=== PATIENT | female | born 1940 | race Caucasian/White ===

== ENCOUNTER 2017-08-16 09:46 | Emergency (ER) | payer MEDICARE, OTHER ==
[~2017-08-16] VITALS: Ht 162.6 cm; Wt 54.4 kg
[~2017-08-16 09:46] MED LIST: ASPIR 8181 MG PO; LIPITOR40 MG PO; LOPERAMIDE 2 MG2 M1 PO; NORVASC5 MG PO; PLAVIX 75 MG TA75 M1 PO; PRINIVIL20 MG PO
[2017-08-16] MEDS ORDERED: SYNTHROID150 MCG PO (10:02)
[2017-08-16] MEDS ORDERED: HYDROCODONE-AP1 EAC6 PO (12:12)
[2017-08-16 12:42] VITALS: BP 135/71
[2017-08-18] MEDS ORDERED: LEVOTHYROXINE125 MCG PO (12:27)
[2017-08-23] MEDS ORDERED: HYDROCODONE-AP1 EAC6 PO (13:11)
== END 2017-08-16 12:43 | disposition home or self-care (01) ==
LOC: M.ERS 09:46
DX: S52.592A Other fractures of lower end of left radius, initial encounter for closed fracture (principal); I10 Essential (primary) hypertension; E78.00 Pure hypercholesterolemia, unspecified; K52.9 Noninfective gastroenteritis and colitis, unspecified; F17.210 Nicotine dependence, cigarettes, uncomplicated; Z88.1 Allergy status to other antibiotic agents; W18.39XA Other fall on same level, initial encounter; Y93.89 Activity, other specified; Y92.89 Other specified places as the place of occurrence of the external cause; Y99.8 Other external cause status

== ENCOUNTER → 2017-08-23 | Day surgery (SDC) | payer MEDICARE, OTHER ==
[~2017-08-23] MED LIST changes: +HYDROCODONE-AP1 EAC6 PO; +LEVOTHYROXINE125 MCG PO; +SYNTHROID150 MCG PO
[2017-08-23 09:05] LABS: HEMATOCRIT 42.6 % (37.0-47.0); HEMOGLOBIN 14.3 gm/dL (12.0-15.0); MCH 30.9 pg (26.0-34.0); MCHC 33.4 g/dL (28.0-37.0); MCV 92.5 fL (80.0-100.0); MPV 9.1 fl. (7.2-11.1); RBC 4.61 mil/uL (4.20-5.00); RDW-CV 15.2 % (10.5-14.5); WBC 8.1 thou/uL (4.0-11.0)
[2017-08-23 09:12] LABS: CALCIUM 8.9 mg/dL (8.5-10.1); CREATININE 1.7 mg/dL (0.6-1.3)
[2017-08-23 09:17] LABS: ALBUMIN 3.3 g/dL (3.4-5.0); TOTAL BILIRUBIN 0.3 mg/dL (<0.1-1.0); TOTAL PROTEIN 6.8 g/dL (6.4-8.2)
--- NOTE | 2017-08-23 16:25 | EKG ---
[place] [address] ELECTROCARDIOGRAM REPORT Name: DARSHAN KAMARA Room: [facility]#: [id number] Admission: 08/23/17 Attend Phys: Alex Garrison II Discharge: Date of : 36 Report #: [id number] THIS REPORT FOR: //name// [facility] Test Date: 2017-08-23 Test Time: 08:52:52 Pat Name: DARSHAN BALWINDERJEREMÍAS Department: Room: Gender: Transfer Man: BRIGIDO : 1940 Requested By: Alex Garrison Order Number: [id number] Hillary MD: Marquis Singleton Measurements Intervals [place] Rate: 92 P: 85 W[place]: 143 QRS: 86 QRSD: 85 T: 52 QT: 364 QTc: 451 Interpretive Statements Sinus rhythm Possible left atrial enlargement Borderline right axis deviation Compared to ECG 06/11/2016 12:42:52 No significant changes Electronically Signed On 08-23-2017 16:25:31 STUDENT DEVELOPMENT ADVISOR by Marquis Singleton [email or web address] <ELECTRONICALLY SIGNED> By: Marquis Singleton MD, [facility] 08/23/17 1625 1 Marquis Singleton MD, [facility] /EPI
--- NOTE | 2017-09-07 16:43 | OP ---
[address] [address] OPERATIVE REPORT Name: DARSHAN KAMARA Room: [facility]#: [id number] Admission: 08/23/17 Attend Phys: Alex Garrison II Discharge: Date of : 36 Report #: [id number] THIS REPORT FOR: //name// CC: Phoebe Garrison DATE OF SERVICE: 08/23/2017 PREOPERATIVE DIAGNOSIS: Left distal radius fracture greater than 3 parts with comminution and displacement. POSTOPERATIVE DIAGNOSIS: Left distal radius fracture greater than 3 parts with comminution and displacement. PROCEDURE: Open reduction and internal fixation of left distal radius fracture greater than 3 parts. SURGEON: Alex Garrison II, DO [employer] STEAMER: ELENA Toure. ANESTHESIA: General endotracheal. ESTIMATED BLOOD LOSS: Minimal. ANTIBIOTICS: Per operative record. DRAINS: None. COMPLICATIONS: None. CONDITION: The patient stable to recovery room. IMPLANTS: [place] distal radius plate with appropriate locking and nonlocking screws. BRIEF HISTORY: The patient had prior distal radius fracture and was seen in the ER, was seen in the clinic and after this for evaluation and a splint, did have displacement and comminution of the distal radius. Closed treatment versus operative interventions were discussed and the patient assumed all risks and wished to proceed with surgery. OPERATIVE PROCEDURE: The patient was taken to the operative suite and placed supine on the operating table and given appropriate anesthesia. The patient's left upper extremity, a well-padded tourniquet was applied to the upper arm, which was inflated to 250 mmHg for the duration [place] [address] OPERATIVE REPORT Name: DARSHAN KAMARA Room: [facility]#: [id number] Admission: 08/23/17 Attend Phys: Alex Garrison II Discharge: Date of : 36 Report #: [id number] exsanguination. The left arm was then sterilely prepped and draped. Surgery began by a volar incision over the flexor carpi radialis tendon. This was carried down to the subcutaneous tissues. The pronator was then reflected from the radius and the fracture was evaluated. Utilizing C-arm this fracture was reduced in near anatomic fashion as well as utilizing intraoperative hardware and tools in order to reduce this fracture. It was then aligned with the plate and pinned into position to hold the alignment. The screws were then placed through the distal portion as well as up to the proximal to allow for stable fixation of the joint as well as of the fracture site. Multiple fracture fragments were moved into position in ordered to be pinned in this location. Final irrigation was performed. Final images were taken with C-arm in both AP and lateral directions showed excellent reduction and near anatomic fixation without penetration of the joint. The pronator was reflected back over the plate and sewn into position. The subcuticular layer was then closed with 2-0 Vicryl. Skin was closed with a running Monocryl stitch. Dermabond and sterile dressing were applied. A volar splint was then applied as well. The patient was transported to the recovery room in stable condition. Counts were correct throughout the procedure. <ELECTRONICALLY SIGNED> By: Alex Garrison II, DO 09/07/17 1643 [id number] Garrison II, DO /nt
== END | disposition home or self-care (01) ==
LOC: M.SUR 08:31
PROVIDERS: Orthopaedic Surgery
DX: S52.502A Unspecified fracture of the lower end of left radius, initial encounter for closed fracture (principal); X58.XXXA Exposure to other specified factors, initial encounter; Y93.9 Activity, unspecified; Y92.89 Other specified places as the place of occurrence of the external cause; Y99.9 Unspecified external cause status
CPT/HCPCS: 25609; C1713

== ENCOUNTER → 2018-01-26 | Outpatient (CLI) | payer MEDICARE, OTHER | LOC: M.ULTRA 12:43 | DX: I72.1 Aneurysm of artery of upper extremity (principal) ==

== ENCOUNTER → 2018-05-15 | Outpatient (CLI) | payer MEDICARE, OTHER | LOC: M.RAD 14:24 | DX: J44.9 Chronic obstructive pulmonary disease, unspecified (principal); Z87.891 Personal history of nicotine dependence ==

== ENCOUNTER → 2018-07-27 | Outpatient (CLI) | payer MEDICARE, OTHER ==
[2018-07-27 15:10] LABS: ABSOLUTE NEUTROPHILS 4.1 thou/uL (1.6-8.1); HEMATOCRIT 37.7 % (37.0-47.0); HEMOGLOBIN 12.4 gm/dL (12.0-15.0); MCH 30.7 pg (26.0-34.0); MCHC 32.8 g/dL (28.0-37.0); MCV 93.7 fL (80.0-100.0); MPV 9.2 fl. (7.2-11.1); PLATELET COUNT* 138 thou/uL (150-400); POLYS 60.5 %; RBC 4.02 mil/uL (4.20-5.00); RDW-CV 15.2 % (10.5-14.5); WBC 6.7 thou/uL (4.0-11.0)
[2018-07-27 15:11] LABS: ABSOLUTE EOSINOPHILS 0.1 thou/uL (0.0-0.7); ABSOLUTE LYMPHOCYTES 1.9 thou/uL (0.8-5.3); ABSOLUTE MONOCYTES 0.6 thou/uL (0.0-1.2); BASOPHILS 0.7 %; EOSINOPHILS 1.7 %; LYMPHOCYTES 28.4 %; MONOCYTES 8.7 %
[2018-07-27 15:14] LABS: URINE BILIRUBIN NEGATIVE (Negative); URINE BLOOD 2+ (Negative); URINE CLARITY CLEAR; URINE COLOR YELLOW; URINE GLUCOSE-RANDOM NEGATIVE (Negative); URINE KETONES NEGATIVE (Negative); URINE LEUKOCYTES NEGATIVE (Negative); URINE NITRITE NEGATIVE (Negative); URINE PROTEIN 2+ (Negative); URINE SPECIFIC GRAVITY >= 1.030 (1.005-1.030); URINE UROBILINOGEN 0.2 E.U./dl (0.2-1.0)
[2018-07-27 15:20] LABS: ALBUMIN 3.3 g/dL (3.4-5.0); CALCIUM 8.9 mg/dL (8.5-10.1); CREATININE 1.7 mg/dL (0.6-1.3); POTASSIUM 3.9 mmol/L (3.5-5.1); TOTAL BILIRUBIN 0.2 mg/dL (<0.1-1.0); TOTAL PROTEIN 6.8 g/dL (6.4-8.2); URIC ACID* 4.1 mg/dL (2.6-7.2)
[2018-07-27 15:24] LABS: BACTERIA >30 Many /HPF (None Seen); CRYSTALS None Seen /LPF (None Seen); HYALINE CASTS 0-3 Few /LPF (None Seen); MUCUS None Seen strn/LPF (None Seen); SQUAMOUS >10 Many /LPF (0-3); URINE RBC 3-10 Few /HPF (0-2); URINE WBC 6-15 Few /HPF (0-5); YEAST Present (None Seen)
[2018-07-27 16:15] LABS: CALCIUM 9.1 mg/dL (8.5-10.1); CREATININE 1.7 mg/dL (0.6-1.3); PHOSPHORUS* 3.1 mg/dL (2.5-4.9)
[2018-07-27 21:06] LABS: COMPLEMENT-C4 23 mg/dL (14-44); IgA 196 mg/dL (64-422); IgG 695 mg/dL (700-1600); IgM 56 mg/dL (26-217)
[2018-07-28 07:06] LABS: HEPATITIS B SURFACE AG Negative (Negative)
== END ==
LOC: M.LAB 14:10
PROVIDERS: Internal Medicine Nephrology
DX: I12.9 Hypertensive chronic kidney disease with stage 1 through stage 4 chronic kidney disease, or unspecified chronic kidney disease (principal); N18.3 Chronic kidney disease, stage 3 (moderate); Z87.891 Personal history of nicotine dependence

== ENCOUNTER → 2018-07-28 | Outpatient (CLI) | payer MEDICARE, OTHER ==
[2018-07-31 18:06] LABS: URINE PROTEIN (MG/DL) 43.9 mg/dL (Not Estab.)
== END ==
LOC: M.ULTRA 14:36
PROVIDERS: Internal Medicine Nephrology
DX: I12.9 Hypertensive chronic kidney disease with stage 1 through stage 4 chronic kidney disease, or unspecified chronic kidney disease (principal); N18.3 Chronic kidney disease, stage 3 (moderate); N28.1 Cyst of kidney, acquired; F17.210 Nicotine dependence, cigarettes, uncomplicated; E78.00 Pure hypercholesterolemia, unspecified

== ENCOUNTER → 2019-01-17 | Outpatient (CLI) | payer MEDICARE, OTHER ==
[2019-01-17 10:48] LABS: HEMOGLOBIN 11.6 gm/dL (12.0-15.0)
[2019-01-17 10:51] LABS: CALCIUM 9.4 mg/dL (8.5-10.1); CREATININE 1.7 mg/dL (0.6-1.3); POTASSIUM 4.6 mmol/L (3.5-5.1)
[2019-01-17 11:18] LABS: CALCIUM 9.2 mg/dL (8.5-10.1); CREATININE 1.7 mg/dL (0.6-1.3); PHOSPHORUS* 3.6 mg/dL (2.5-4.9)
== END ==
LOC: M.ULTRA 01-10 13:00
PROVIDERS: Family Medicine
DX: N28.1 Cyst of kidney, acquired (principal); I12.9 Hypertensive chronic kidney disease with stage 1 through stage 4 chronic kidney disease, or unspecified chronic kidney disease; N18.3 Chronic kidney disease, stage 3 (moderate); E78.00 Pure hypercholesterolemia, unspecified; Z90.49 Acquired absence of other specified parts of digestive tract

== ENCOUNTER → 2021-01-05 | Outpatient (CLI) | payer MEDICARE, OTHER | LOC: M.RAD 10:19 | PROVIDERS: ATTEND Family Medicine | DX: M48.07 Spinal stenosis, lumbosacral region (principal); M46.1 Sacroiliitis, not elsewhere classified; M41.9 Scoliosis, unspecified ==